=== PATIENT | male | born 1975 | race Caucasian/White ===

== ENCOUNTER 2021-12-03 18:43 | Emergency (ER) | payer SELFPAY ==
[~2021-12-03] VITALS: Ht 172.7 cm; Wt 77.1 kg
[2021-12-03 18:44] VITALS: BP 131/80
--- NOTE | 2021-12-03 18:50 | NUR ---
BIBA TAKEN TO BED #5
--- NOTE | 2021-12-03 19:21 | NUR ---
46 y/o male biba from streets with c/o ETOH. Patient has no pain, discomfort or SOB. Medical History: ANGELIA NKDA
--- NOTE | 2021-12-03 20:15 | NUR ---
PT AMBULATORY UNASSISTED WITH STEADY GAIT. PT STATES "I AM READY TO GO" PT AMBULATED OUT OF FACILITY AT THIS TIME WITHOUT DISCHARGE INSTRUCTIONS.
== END 2021-12-03 20:15 | disposition home or self-care (01) ==
LOC: MED 18:43
DX: F10.129 Alcohol abuse with intoxication, unspecified (principal); R41.82 Altered mental status, unspecified; E11.9 Type 2 diabetes mellitus without complications; Z79.899 Other long term (current) drug therapy
CPT/HCPCS: 99283